=== PATIENT | male | born 1950 | race Caucasian/White ===

== ENCOUNTER 2019-08-11 13:58 | Outpatient (CLI) | payer OTHER ==
[~2019-08-11] VITALS: Ht 177.8 cm; Wt 108.9 kg
[2019-08-11] MEDS ORDERED: albuterol 2.5 MG/3 ML nebule NEB ONE (16:20)
== END 2019-08-11 23:59 | disposition home or self-care (01) ==
LOC: CARD DIAG 13:58
PROVIDERS: ATTEND Orthopaedic Surgery
DX: I05.8 Other rheumatic mitral valve diseases (principal); I11.9 Hypertensive heart disease without heart failure; I27.20 Pulmonary hypertension, unspecified; J98.4 Other disorders of lung; Z77.090 Contact with and (suspected) exposure to asbestos; Z87.891 Personal history of nicotine dependence
CPT/HCPCS: 71046; 93306; 94060; 94729; 94760